=== PATIENT | female | born 1970 | race Caucasian/White ===

== ENCOUNTER 2022-04-04 06:53 | Day surgery (SDC) | payer MEDICAID ==
[~2022-04-04] VITALS: Ht 172.7 cm; Wt 155.0 kg
[~2022-04-04 06:53] MED LIST: CLON-527 PO; GABA600T PO; MOT200T PO; OLAN10TA3 PO; OLAN5TAB5 PO; TRAZ-256 PO
[2022-04-04 07:05] VITALS: BP 124/72
[2022-04-04] MEDS ORDERED: CHANTIX (07:14)
[2022-04-04] MEDS ORDERED: ROSU40TA PO (07:14)
[2022-04-04] MEDS ORDERED: METO50TA17 PO (07:14)
[2022-04-04] MEDS ORDERED: LOSA25TA96 PO (07:14)
[2022-04-04] MEDS ORDERED: ACET-1015 PO (07:14)
[2022-04-04] MEDS ORDERED: DULO-31 PO (07:14)
[2022-04-04] MEDS ORDERED: fentaNYL/PF 50MCG/1 ML 2ML syringe ONE (07:16)
[2022-04-04] MEDS ORDERED: MIDAZolam 1 MG/ML 5ML VIAL ONE (07:17)
[2022-04-04] MEDS ORDERED: LIDOcaine Viscous 15ml cup ONE (07:17)
[2022-04-04 08:33] VITALS: BP 136/77
[2022-04-04 08:43] VITALS: BP 135/79
[2022-04-04 08:53] VITALS: BP 146/61
[2022-04-04 09:03] VITALS: BP 140/95
== END 2022-04-04 09:15 | disposition home or self-care (01) ==
LOC: GI LAB 06:53
PROVIDERS: ATTEND Internal Medicine Gastroenterology
DX: Z01.818 Encounter for other preprocedural examination (principal); R12 Heartburn; K21.00 Gastro-esophageal reflux disease with esophagitis, without bleeding; K29.50 Unspecified chronic gastritis without bleeding; B96.81 Helicobacter pylori [H. pylori] as the cause of diseases classified elsewhere; I10 Essential (primary) hypertension; J44.9 Chronic obstructive pulmonary disease, unspecified; E66.01 Morbid (severe) obesity due to excess calories; Z68.43 Body mass index [BMI] 50.0-59.9, adult; Z87.891 Personal history of nicotine dependence; Z79.899 Other long term (current) drug therapy
CPT/HCPCS: 43239; 99152; J2250; J3010; J7040; Z7512; A4620